=== PATIENT | female | born 1980 | race Caucasian/White ===

== ENCOUNTER → 2018-01-28 | Outpatient (CLI) | payer BC ==
[2018-01-28 14:35] LABS: PROTHROMBIN TIME 23.6 SEC (11.4-15.4)
== END ==
LOC: OD 13:50
PROVIDERS: ATTEND Internal Medicine
DX: I82.409 Acute embolism and thrombosis of unspecified deep veins of unspecified lower extremity (principal)
CPT/HCPCS: 36415; 85610

== ENCOUNTER → 2018-02-24 | Outpatient (CLI) | payer BC ==
[2018-02-24 14:45] LABS: ABSOLUTE BASOPHILS # (AUTO) 0.2 10^3/uL (0.0-0.2); ABSOLUTE EOSINOPHILS # (AUTO) 0.2 10^3/uL (0.0-0.6); ABSOLUTE LYMPHOCYTES (AUTO) 2.2 10^3/uL (0.5-4.7); ABSOLUTE MONOCYTES (AUTO) 0.5 10^3/uL (0.1-1.4); ABSOLUTE NEUT (AUTO) 5.1 10^3/uL (1.7-8.2); BASOPHILS % (AUTO) 1.8 % (0-2); EOSINOPHILS % (AUTO) 2.6 % (0-6); HEMATOCRIT 37.6 % (36.0-47.0); HEMOGLOBIN 12.8 g/dL (12.0-15.5); LYMPHOCYTES % (AUTO) 26.5 % (13-45); MEAN CORPUSCULAR HEMOGLOBIN 28.7 pg (27.0-33.4); MEAN CORPUSCULAR HGB CONC 33.9 g/dL (32.0-36.0); MEAN CORPUSCULAR VOLUME 85 fl (80-97); MONOCYTES % (AUTO) 6.4 % (3-13); PLATELET COUNT 347 10^3/uL (150-450); RED BLOOD COUNT 4.45 10^6/uL (3.72-5.28); RED CELL DISTRIBUTION WIDTH 13.7 % (11.5-14.0); SEGMENTED NEUTROPHILS % (AUTO) 62.7 % (42-78); TOTAL CELLS COUNTED % (AUTO) 100 %; WHITE BLOOD COUNT 8.2 10^3/uL (4.0-10.5)
[2018-02-24 14:55] LABS: PROTHROMBIN TIME 24.6 SEC (11.4-15.4)
[2018-02-24 14:59] LABS: APPEARANCE,URINE SLIGHTLY-CLOUDY; BILIRUBIN,URINE NEGATIVE (NEGATIVE); GLUCOSE, URINE NEGATIVE (NEGATIVE); KETONES,URINE NEGATIVE (NEGATIVE); LEUKOCYTE ESTERASE,URINE SMALL (NEGATIVE); NITRITE,URINE NEGATIVE (NEGATIVE); PROTEIN,URINE NEGATIVE (NEGATIVE); URINE SPECIFIC GRAVITY 1.002; UROBILINOGEN,URINE NEGATIVE mg/dL (<2.0)
[2018-02-24 15:04] LABS: COLOR,URINE COLORLESS
[2018-02-24 15:06] LABS: ALANINE AMINOTRANSFERASE 27 U/L (9-52); ALBUMIN 4.2 g/dL (3.5-5.0); ALKALINE PHOSPHATASE 109 U/L (38-126); ANION GAP 13 (5-19); ASPARTATE AMINO TRANSFERASE 21 U/L (14-36); BILIRUBIN,DIRECT 0.2 mg/dL (0.0-0.4); BILIRUBIN,TOTAL 0.6 mg/dL (0.2-1.3); BLOOD UREA NITROGEN 8 mg/dL (7-20); CALCIUM 9.2 mg/dL (8.4-10.2); CARBON DIOXIDE 25 mmol/L (22-30); CHLORIDE 102 mmol/L (98-107); CHOLESTEROL 179.55 mg/dL (0-200); GLUCOSE 75 mg/dL (75-110); POTASSIUM 3.9 mmol/L (3.6-5.0); SODIUM 140.3 mmol/L (137-145); TOTAL PROTEIN 7.2 g/dL (6.3-8.2); TRIGLYCERIDES 101 mg/dL (<150)
[2018-02-24 15:17] LABS: DIRECT LDL 125 mg/dL (<100)
== END ==
LOC: OD 13:40
PROVIDERS: ATTEND Internal Medicine
DX: E78.5 Hyperlipidemia, unspecified (principal); E03.9 Hypothyroidism, unspecified; E55.9 Vitamin D deficiency, unspecified; N39.0 Urinary tract infection, site not specified; D64.9 Anemia, unspecified; R10.9 Unspecified abdominal pain
CPT/HCPCS: 36415; 80053; 80061; 81001; 82306; 84443; 85025; 85610

== ENCOUNTER → 2018-04-01 | Outpatient (CLI) | payer BC ==
[2018-04-01 10:49] LABS: PROTHROMBIN TIME 29.9 SEC (11.4-15.4)
== END ==
LOC: OD 09:20
PROVIDERS: ATTEND Internal Medicine
DX: D68.51 Activated protein C resistance (principal)
CPT/HCPCS: 36415; 85610

== ENCOUNTER → 2018-04-28 | Outpatient (CLI) | payer BC ==
[2018-04-28 16:23] LABS: INTERNATIONAL RATION (INR) 1.96; PROTHROMBIN TIME 23.3 SEC (11.4-15.4)
== END ==
LOC: OD 15:14
PROVIDERS: ATTEND Internal Medicine
DX: D68.51 Activated protein C resistance (principal)
CPT/HCPCS: 36415; 85610

== ENCOUNTER → 2018-05-29 | Outpatient (CLI) | payer BC ==
[2018-05-29 14:04] LABS: INTERNATIONAL RATION (INR) 1.81; PROTHROMBIN TIME 21.9 SEC (11.4-15.4)
== END ==
LOC: OD 13:21
PROVIDERS: ATTEND Internal Medicine
DX: D68.51 Activated protein C resistance (principal)
CPT/HCPCS: 36415; 85610

== ENCOUNTER → 2018-06-19 | Outpatient (CLI) | payer BC ==
[2018-06-19 13:50] LABS: INTERNATIONAL RATION (INR) 1.79; PROTHROMBIN TIME 21.7 SEC (11.4-15.4)
== END ==
LOC: OD 13:08
PROVIDERS: ATTEND Internal Medicine
DX: D68.51 Activated protein C resistance (principal)
CPT/HCPCS: 36415; 85610

== ENCOUNTER → 2018-07-06 | Outpatient (CLI) | payer BC ==
[2018-07-06 14:38] LABS: INTERNATIONAL RATION (INR) 2.71
== END ==
LOC: OD 13:22
PROVIDERS: ATTEND Internal Medicine
DX: D68.51 Activated protein C resistance (principal)
CPT/HCPCS: 36415; 85610

== ENCOUNTER → 2018-08-17 | Outpatient (CLI) | payer BC ==
[2018-08-17 14:36] LABS: INTERNATIONAL RATION (INR) 3.09; PROTHROMBIN TIME 33.3 SEC (11.4-15.4)
== END ==
LOC: OD 13:15
PROVIDERS: ATTEND Internal Medicine
DX: D68.51 Activated protein C resistance (principal)
CPT/HCPCS: 36415; 85610

== ENCOUNTER → 2018-10-20 | Outpatient (CLI) | payer BC ==
[2018-10-20 08:09] LABS: INTERNATIONAL RATION (INR) 3.49; PROTHROMBIN TIME 35.9 SEC (11.4-15.4)
== END ==
LOC: OD 07:30
PROVIDERS: ATTEND Internal Medicine
DX: D68.51 Activated protein C resistance (principal)
CPT/HCPCS: 36415; 85610

== ENCOUNTER → 2018-11-12 | Outpatient (CLI) | payer BC ==
[2018-11-12 08:20] LABS: INTERNATIONAL RATION (INR) 3.29; PROTHROMBIN TIME 34.2 SEC (11.4-15.4)
== END ==
LOC: OD 07:45
PROVIDERS: ATTEND Internal Medicine
DX: D68.51 Activated protein C resistance (principal)
CPT/HCPCS: 36415; 85610

== ENCOUNTER → 2018-12-18 | Outpatient (CLI) | payer BC ==
[2018-12-18 09:43] LABS: INTERNATIONAL RATION (INR) 2.81; PROTHROMBIN TIME 30.2 SEC (11.4-15.4)
== END ==
LOC: OD 08:23
PROVIDERS: ATTEND Family Medicine
DX: Z51.81 Encounter for therapeutic drug level monitoring (principal); Z79.01 Long term (current) use of anticoagulants
CPT/HCPCS: 36415; 85610

== ENCOUNTER → 2019-02-05 | Outpatient (CLI) | payer BC ==
[2019-02-05 11:30] LABS: INTERNATIONAL RATION (INR) 2.78; PROTHROMBIN TIME 29.9 SEC (11.4-15.4)
== END ==
LOC: OD 10:26
PROVIDERS: ATTEND Family Medicine
DX: Z51.81 Encounter for therapeutic drug level monitoring (principal); Z79.01 Long term (current) use of anticoagulants
CPT/HCPCS: 36415; 85610

== ENCOUNTER → 2019-03-26 | Outpatient (CLI) | payer BC ==
[2019-03-26 11:24] LABS: INTERNATIONAL RATION (INR) 2.66; PROTHROMBIN TIME 28.8 SEC (11.4-15.4)
== END ==
LOC: OD 09:57
PROVIDERS: ATTEND Family Medicine
DX: Z51.81 Encounter for therapeutic drug level monitoring (principal); Z79.01 Long term (current) use of anticoagulants
CPT/HCPCS: 36415; 85610

== ENCOUNTER → 2019-05-21 | Outpatient (CLI) | payer BC ==
[2019-05-21 09:01] LABS: INTERNATIONAL RATION (INR) 2.43; PROTHROMBIN TIME 26.8 SEC (11.4-15.4)
== END ==
LOC: OD 07:54
PROVIDERS: ATTEND Family Medicine
DX: Z79.01 Long term (current) use of anticoagulants (principal)
CPT/HCPCS: 36415; 85610

== ENCOUNTER → 2019-08-16 | Outpatient (CLI) | payer BC ==
[2019-08-16 15:23] LABS: INTERNATIONAL RATION (INR) 2.83; PROTHROMBIN TIME 30.3 SEC (11.4-15.4)
== END ==
LOC: OD 13:23
PROVIDERS: ATTEND Family Medicine
DX: Z51.81 Encounter for therapeutic drug level monitoring (principal); Z79.01 Long term (current) use of anticoagulants
CPT/HCPCS: 36415; 85610

== ENCOUNTER → 2019-10-26 | Outpatient (CLI) | payer BC ==
[2019-10-26 16:06] LABS: INTERNATIONAL RATION (INR) 2.28; PROTHROMBIN TIME 25.5 SEC (11.4-15.4)
== END ==
LOC: OD 13:40
PROVIDERS: ATTEND Family Medicine
DX: Z51.81 Encounter for therapeutic drug level monitoring (principal); Z79.01 Long term (current) use of anticoagulants
CPT/HCPCS: 36415; 85610

== ENCOUNTER → 2019-12-21 | Outpatient (CLI) | payer BC ==
[2019-12-21 14:29] LABS: INTERNATIONAL RATION (INR) 3.54; PROTHROMBIN TIME 35.2 SEC (11.4-15.4)
== END ==
LOC: OD 13:30
PROVIDERS: ATTEND Family Medicine
DX: Z51.81 Encounter for therapeutic drug level monitoring (principal); Z79.01 Long term (current) use of anticoagulants
CPT/HCPCS: 36415; 85610

== ENCOUNTER → 2019-12-29 | Outpatient (CLI) | payer BC ==
[2019-12-29 13:39] LABS: PROTHROMBIN TIME 20.1 SEC (11.4-15.4)
== END ==
LOC: OD 12:37
PROVIDERS: ATTEND Family Medicine
DX: Z51.81 Encounter for therapeutic drug level monitoring (principal); Z79.01 Long term (current) use of anticoagulants
CPT/HCPCS: 36415; 85610

== ENCOUNTER → 2020-01-06 | Outpatient (CLI) | payer BC ==
[2020-01-06 08:36] LABS: INTERNATIONAL RATION (INR) 3.22; PROTHROMBIN TIME 32.7 SEC (11.4-15.4)
[2020-01-06 08:59] LABS: ALBUMIN 3.9 g/dL (3.5-5.0); ALKALINE PHOSPHATASE 105 U/L (38-126); ANION GAP 9 (5-19); ASPARTATE AMINO TRANSFERASE 26 U/L (14-36); BILIRUBIN,DIRECT 0.3 mg/dL (0.0-0.4); BILIRUBIN,TOTAL 0.5 mg/dL (0.2-1.3); BLOOD UREA NITROGEN 12 mg/dL (7-20); CARBON DIOXIDE 27 mmol/L (22-30); CHLORIDE 104 mmol/L (98-107); CHOLESTEROL 192.35 mg/dL (0-200); GLUCOSE 97 mg/dL (75-110); POTASSIUM 4.6 mmol/L (3.6-5.0); TOTAL PROTEIN 6.9 g/dL (6.3-8.2); TRIGLYCERIDES 107 mg/dL (<150)
[2020-01-06 09:11] LABS: DIRECT LDL 140 mg/dL (<100)
== END ==
LOC: OD 07:25
PROVIDERS: ATTEND Family Medicine
DX: E78.2 Mixed hyperlipidemia (principal); D68.51 Activated protein C resistance; Z13.1 Encounter for screening for diabetes mellitus; Z79.01 Long term (current) use of anticoagulants
CPT/HCPCS: 36415; 80053; 80061; 85610

== ENCOUNTER → 2020-01-13 | Outpatient (CLI) | payer BC ==
[2020-01-13 09:30] LABS: INTERNATIONAL RATION (INR) 1.96; PROTHROMBIN TIME 22.4 SEC (11.4-15.4)
== END ==
LOC: OD 08:27
PROVIDERS: ATTEND Family Medicine
DX: Z12.4 Encounter for screening for malignant neoplasm of cervix (principal); Z79.01 Long term (current) use of anticoagulants
CPT/HCPCS: 36415; 85610; 87624; 88142

== ENCOUNTER → 2020-03-01 | Outpatient (CLI) | payer BC ==
[2020-03-01 08:26] LABS: INTERNATIONAL RATION (INR) 4.07; PROTHROMBIN TIME 39.1 SEC (11.4-15.4)
== END ==
LOC: OD 07:07
PROVIDERS: ATTEND Family Medicine
DX: Z79.01 Long term (current) use of anticoagulants (principal)
CPT/HCPCS: 36415; 85610

== ENCOUNTER → 2020-03-08 | Outpatient (CLI) | payer BC ==
[2020-03-08 08:29] LABS: INTERNATIONAL RATION (INR) 1.23; PROTHROMBIN TIME 15.7 SEC (11.4-15.4)
== END ==
LOC: OD 07:03
PROVIDERS: ATTEND Family Medicine
DX: Z51.81 Encounter for therapeutic drug level monitoring (principal); Z79.01 Long term (current) use of anticoagulants
CPT/HCPCS: 36415; 85610

== ENCOUNTER → 2020-03-15 | Outpatient (CLI) | payer BC ==
[2020-03-15 08:33] LABS: INTERNATIONAL RATION (INR) 2.31
[2020-03-15 08:35] LABS: PROTHROMBIN TIME 25.4 SEC (11.4-15.4)
== END ==
LOC: OD 07:02
PROVIDERS: ATTEND Family Medicine
DX: Z51.81 Encounter for therapeutic drug level monitoring (principal); Z79.01 Long term (current) use of anticoagulants
CPT/HCPCS: 36415; 85610